=== PATIENT | female | born 1985 | race Caucasian/White ===

== ENCOUNTER 2018-02-02 13:18 | Emergency (ER) | payer OTHER ==
[2018-02-02] MEDS: LORAZEPAM 1 MG TAB PO (17:43)
[2018-02-02] MEDS: MAGNESIUM SULFATE 2 GM, MULTIVITAMINS 10 ML, THIAMINE 100 MG, FOLIC ACID 1 MG in SOD CH... IV (18:07)
[2018-02-02 18:15] LABS: OPIATES Negative (NEGATIVE)
[2018-02-02 18:19] LABS: AMPHETAMINE/METHAMPHETAMINE Negative (NEGATIVE); BARBITURATES Negative (NEGATIVE); BENZODIAZEPINES Negative (NEGATIVE); CANNABINOIDS Negative (NEGATIVE); COCAINE Positive (NEGATIVE)
== END 2018-02-02 21:11 | disposition home or self-care (01) ==
LOC: FTE 13:18
DX: F10.10 Alcohol abuse, uncomplicated (principal); E86.0 Dehydration; F17.210 Nicotine dependence, cigarettes, uncomplicated
CPT/HCPCS: 80307; 81025; 93005; 96374; 99284-25